=== PATIENT | male | born 1960 | race Caucasian/White ===

== ENCOUNTER 2020-05-25 22:25 | Emergency (ER) | payer OTHER ==
[~2020-05-25] VITALS: Ht 188 cm; Wt 109.8 kg
[2020-05-26] MEDS ORDERED: LIDOCAINE W/ EPINEPHRINE 2% INJ 20ML VIAL ONE (05:07)
[2020-05-26 05:55] VITALS: BP 134/78
== END 2020-05-26 05:58 | disposition home or self-care (01) ==
LOC: EDBD 22:25 → ER 22:25
DX: S01.01XA Laceration without foreign body of scalp, initial encounter (principal); S00.03XA Contusion of scalp, initial encounter; X58.XXXA Exposure to other specified factors, initial encounter; Y93.89 Activity, other specified; Y92.89 Other specified places as the place of occurrence of the external cause; Y99.8 Other external cause status
CPT/HCPCS: 12002; 70450; 72125

== ENCOUNTER → 2024-04-26 | Outpatient (CLI) | payer OTHER ==
[2024-04-26 08:28] LABS: Urine Blood Negative /uL (Negative); Urine Clarity Clear (Clear); Urine Color Yellow (Yellow); Urine Protein, UAD Negative (Negative); Urine Specific Gravity 1.024 (1.001-1.035); Urine Urobilinogen Normal (Negative); Urine pH 5.5 (5.0-9.0)
== END | disposition home or self-care (01) ==
LOC: LAB 08:18
PROVIDERS: ATTEND Internal Medicine
DX: R10.2 Pelvic and perineal pain (principal)
CPT/HCPCS: 81003; 87086

== ENCOUNTER 2025-02-20 00:36 | Inpatient (IN) | payer OTHER ==
[2025-02-20] VITALS (7 sets, daily range): BP systolic 115–151; BP diastolic 72–82; PULSE 64–78; RESP 12–22; TEMP 97.3–98.2; O2SAT 93–97
[~2025-02-20] VITALS: Ht 180.3 cm; Wt 108.2 kg
--- NOTE | 2025-02-20 00:50 | ECG ---
[facility] Test Date: 2025-02-20 Test Time: 00:40:51 Pat Name: DANYELL PERDUE Department: ed Room: Gender: M Evp And Chief Operating Officer: LIZBETH : 1960 Requested By: JONATHON BUTLER Order Number: [id number] Reading MD: Measurements Intervals [place] Rate: 102 P: 0 VA: 145 QRS: 98 QRSD: 88 T: -22 QT: 341 QTc: 445 Interpretive Statements Sinus tachycardia Atrial premature complex Right axis deviation Borderline T abnormalities, inferior leads Please click the below link to view image of tracing.
[2025-02-20 01:03] LABS: Urine Bacteria None Seen /hpf (None Seen)
[2025-02-20 01:10] LABS: Basophils # (auto) 0.1 10 ^3/uL (0-0.2); Basophils % (auto) 0.9 % (0.0-2.0); Eosinophils # (auto) 0.2 10 ^3/uL (0-0.8); Eosinophils % (auto) 2.6 % (0.0-7.0); Hematocrit 48.1 % (41.0-53.0); Hemoglobin 16.3 g/dL (13.5-17.5); Lymphocytes # (auto) 2.9 10 ^3/uL (0.4-5.4); Mean Corpuscular Hemoglobin 32.8 pg (28.0-32.0); Mean Corpuscular Volume 96.5 fL (80.0-100.0); Monocytes # (auto) 0.6 10 ^3/uL (0-1.3); Monocytes % (auto) 8.8 % (0.0-12.0); Neutrophils # (auto) 2.8 10 ^3/uL (1.6-8.6); Neutrophils % (auto) 42.7 % (37.0-80.0); Nucleated Red Blood Cells % 0.2 %; Platelet Count (auto) 189 10^3/uL (140-450); Red Blood Cells 4.98 10^6/uL (4.5-5.90); White Blood Cell 6.5 10^3/uL (4.4-10.8)
[2025-02-20 01:23] LABS: Urine Blood Negative /uL (Negative); Urine Clarity Clear (Clear); Urine Color Light-Yellow (Yellow); Urine Hyaline Cast FEW /lpf (0 - 2); Urine Mucus FEW (None Seen); Urine Protein, UAD 1+ (Negative); Urine Specific Gravity 1.014 (1.001-1.035); Urine Squamous Epithelial Cell None Seen /hpf (<5); Urine Urobilinogen Normal (Negative); Urine WBC < 1 /HPF (0-3)
[2025-02-20 01:24] LABS: Alanine Aminotransferase 29 U/L (7-40); Albumin 4.2 g/dL (3.2-4.8); Alkaline Phosphatase 58 U/L (46-116); Anion Gap 14 (5-15); Aspartate Aminotransferase 30 U/L (13-40); BUN/Creatinine Ratio 18.4 (10.0-20.0); Bilirubin, Total 0.6 mg/dL (0.2-1.0); Blood Urea Nitrogen 16 mg/dL (9-23); Calcium 8.9 mg/dL (8.7-10.4); Carbon Dioxide 21 mmol/L (20-31); Chloride 106 mmol/L (98-107); Glucose 121 mg/dL (74-106); Lipase 60 U/L (12-53); Potassium 3.5 mmol/L (3.5-5.1); Sodium 141 mmol/L (136-145); Total Protein 6.5 g/dL (5.7-8.2)
--- NOTE | 2025-02-20 01:59 | ED.PDOC ---
HPI Comments 64-year-old male with a history of BPH and high cholesterol brought in by family complaining of retrosternal chest pain that woke him from sleep after he rolled over in bed about an hour and a half ago. He describes the pain as like severe heartburn or indigestion, no particular exacerbating factors, associated with shortness of breath and dizziness. He states he initially tried to walk it off, however this made the symptoms worse, so he decided to come to the emergency room. At the time of my interview, the patient states pain has completely subsided and he is pain-free. He denies any other recent symptoms. Chief Complaint: Chest Pain Time Seen by MD: 00:45 Primary Care Provider: Carolyne Reviewed Notes: Nurses Notes Allergies: Coded Allergies: NO KNOWN ALLERGIES (Unverified , 05/25/20) Information Source: Patient Mode of Arrival: Ambulatory Past Medical History PAST MEDICAL HISTORY: High Lipids Past Medical History (Other): BPH Surgical History (Other): Inguinal hernia repair, knee surgery, rotator cuff surgery Family History Family History: Family hx of heart lew Family History (Other): Multiple family members with heart disease Social History Smoker: Non-Smoker Alcohol: Heavy Drugs: Denies Drug Use Lives In: Home All Other Systems: Reviewed and Negative (Comprehensive systems review obtained and negative except for what is stated in the HPI.) Physical Exam General Appearance: No Apparent Distress, Obese HEENT: Other (Pupils and face symmetric. Moist mucous membranes.) Neck: Full Range of Motion, Normal Inspection Respiratory: Lungs Clear, No Accessory Muscle Use, No Respiratory Distress, Normal Breath Sounds Cardiovascular: No Edema, No JVD, Tachycardia Breast Exam: Deferred Gastrointestinal: Non Tender, Soft Genitalia: Deferred Pelvic: Deferred Rectal: Deferred Extremities: Normal inspection, Normal range of motion, Non-tender, No pedal edema Neurologic: Alert (Oriented x4), Normal Affect, Normal Mood, Other (Ambulatory) Cerebellar Function: NOT DONE Reflexes: NOT DONE Skin: Dry, Normal Color, Warm Lymphatic: NOT DONE EKG EKG : Comments Sinus tach, rate 102, multiple PACs, normal intervals, right axis deviation, possible old anteroseptal infarct, nonspecific T change. Was a procedure done? Was a procedure done?: No CP Differential Dx Differential Diagnosis: Angina, AR Differential Diagnosis: CHF Differential Diagnosis: Aortic dissection, Chest Wall Pain, Esophageal reflux/spasm, Gastritis, Myocardial Infarction, Pericarditis X-Ray, Labs, Meds, VS Vital Signs Date Time Temp Pulse Resp B/P (MAP) Pulse Ox O2 Delivery O2 Flow Rate FiO2 02/20/25 03:38 87 21 96 Room Air 02/20/25 03:38 98.2 87 21 117/87 (97) 96 98.2 02/20/25 00:45 97.9 102 18 140/86 (104) 95 97.9 02/20/25 00:40 102 Lab Test 02/20/25 04:52 02/20/25 02:47 02/20/25 01:00 02/20/25 00:47 Range/Units Troponin I High Sensitivity 66 *H 35 21 </=54 ng/L Urine Color Light-yellow Yellow Urine Clarity Clear Clear Urine pH 6.0 5.0-9.0 Urine Specific [place] 1.014 1.001-1.035 Urine Protein 1+ H Negative Urine Ketones 1+ H Negative Urine Blood Negative Negative /uL Urine Nitrite Negative Negative Urine Bilirubin Negative Negative Urine Urobilinogen Normal Negative mg/dL Urine Leukocyte Esterase Negative Negative /uL Urine RBC None seen 0 - 3 /hpf Urine Microscopic WBC < 1 0-3 /HPF Urine Squamous Epithelial Cells None seen <5 /hpf Urine Bacteria None seen None Seen /hpf Urine Hyaline Casts Few 0 - 2 /lpf Urine Mucus Few None Seen Urine Glucose Normal Normal mg/dL White Blood Count 6.5 4.4-10.8 10^3/uL Red Blood Count 4.98 4.5-5.90 10^6/uL Hemoglobin 16.3 13.5-17.5 g/dL Hematocrit 48.1 41.0-53.0 % Mean Corpuscular Volume 96.5 80.0-100.0 fL Mean Corpuscular Hemoglobin 32.8 H 28.0-32.0 pg Mean Corpuscular Hemoglobin Concent 34.0 32.0-36.0 g/dL Red Cell Distribution Width 13.0 11.8-14.3 % Platelet Count 189 140-450 10^3/uL Mean Platelet Volume 7.7 6.9-10.8 fL Neutrophils (%) (Auto) 42.7 37.0-80.0 % Lymphocytes (%) (Auto) 45.0 10.0-50.0 % Monocytes (%) (Auto) 8.8 0.0-12.0 % Eosinophils (%) (Auto) 2.6 0.0-7.0 % Basophils (%) (Auto) 0.9 0.0-2.0 % Neutrophils # (Auto) 2.8 1.6-8.6 10 ^3/uL Lymphocytes # (Auto) 2.9 0.4-5.4 10 ^3/uL Monocytes # (Auto) 0.6 0-1.3 10 ^3/uL Eosinophils # (Auto) 0.2 0-0.8 10 ^3/uL Basophils # (Auto) 0.1 0-0.2 10 ^3/uL Nucleated Red Blood Cells 0.2 % Sodium Level 141 136-145 mmol/L Potassium Level 3.5 3.5-5.1 mmol/L Chloride Level 106 98-107 mmol/L Carbon Dioxide Level 21 20-31 mmol/L Anion Gap 14 5-15 Blood Urea Nitrogen 16 9-23 mg/dL Creatinine 0.87 0.700-1.30 mg/dL Glomerular Filtration Rate Calc 97 >90 mL/min BUN/Creatinine Ratio 18.4 10.0-20.0 Serum Glucose 121 H 74-106 mg/dL Calcium Level 8.9 8.7-10.4 mg/dL Total Bilirubin 0.6 0.2-1.0 mg/dL Aspartate Amino Transferase (AST) 30 13-40 U/L Alanine Aminotransferase (ALT) 29 7-40 U/L Alkaline Phosphatase 58 46-116 U/L B-Type Natriuretic Peptide 71.79 0-100 pg/mL Total Protein 6.5 5.7-8.2 g/dL Albumin 4.2 3.2-4.8 g/dL Triglycerides Level 480 H < 150 mg/dL Cholesterol Level 196 < 200 mg/dL LDL Cholesterol < 100 mg/dL HDL Cholesterol 63 H 40-59 mg/dL Lipase 60 H 12-53 U/L Thyroid Stimulating Hormone (TSH) 4.37 0.55-4.78 uIU/mL Current Medications Medications (Trade) Dose Ordered Sig/Liliana Route Start Time Stop Time Status Last Admin Aspirin 162 mg ONCE ONCE PO 02/20/25 04:30 02/20/25 04:31 DC 02/20/25 05:[address] [address] Ph: [phone] DIAGNOSTIC IMAGING Diagnostic Imaging Report : [id number] Signed PATIENT: DANYELL PERDUE ACCT: [id number] UNIT: [id number] : 1960 LOC: ER ROOM / BED: / AGE / SEX: 64 / M ADM STATUS: REG ER SERVICE ORDERING PHYSICIAN: JONATHON HILTON MD PROCEDURE(s): CXRP - CHEST PORTABLE REASON: cp ORDER NUMBER(s): [id number], ACCESSION NUMBER(s): [id number] CHEST RADIOGRAPH Indication: cp Technique: Single frontal view of the chest was obtained Comparison: None IMPRESSION: Heart appears normal in size. The lungs appear clear without focal airspace opacity, effusion, or pneumothorax ATED BY: XAVIER CHAUDHRY MD DICTATED DATE/TIME: 02/20/25220 SIGNED BY: XAVIER CHAUDHRY MD SIGNED DATE/TIME: 02/20/25220 CC: X-Ray, Labs, Meds, VS Comment 64-year-old male with a history of BPH and high cholesterol presenting with chest pain Vitals remarkable for heart rate 102 Exam remarkable for tachycardia Rhythm strip independently interpreted by me: Sinus tach, rate 102, no ectopy. Chest x-ray unremarkable CBC and CMP unremarkable, BNP and 2 troponins negative, lipase 60 Patient treated with the following in the ED: Aspirin 162 mg p.o., viscous lidocaine 10 mL p.o., 10 mL p.o., Maalox 30 mL p.o. On re-evaluation, patient remains chest pain-free. Vitals were stable. Heart score is 4, however lipase is slightly elevated. Plan is to admit the patient for ongoing serial troponins, Cardiology evaluation and possible GI evaluation Time of 1ST Reevaluation: 04:19 Reevaluation 1ST: Unchanged Patient Education/Counseling: Diagnosis, Treatment Family Education/Counseling: No Family Present Departure 1 Departure Time of Disposition: 04:19 Impression: Primary Impression: Chest pain, moderate coronary artery risk Additional Impression: Elevated lipase Disposition: ADMITTED INPATIENT Admit to: [facility] Condition: Guarded Critical Care Note Critical Care Time?: No Stability Stability form required: No Heart Score Heart Score: Heart Score Response (Comments) Value History Moderate Suspicious 1 EKG Repolarization Disturb 1 Age 45-64 1 Risk Factors 1 or 2 risk factors 1 Troponin Normal limit 0 Total 4 I personally scribed for JONATHON HILTON MD ([email or web address]) on 02/20/25 at 02:47. Electronically submitted by Jovany Palacio ([email or web address]). JONATHON HILTON MD February 20, 2025 01:59
--- NOTE | 2025-02-20 02:23 | DVH ---
CHEST RADIOGRAPH Indication: cp Technique: Single frontal view of the chest was obtained Comparison: None IMPRESSION: Heart appears normal in size. The lungs appear clear without focal airspace opacity, effusion, or pn eumothorax
[2025-02-20] MEDS ORDERED: ONDANSETRON HCL 4 MG/2 ML VIAL IV PRN (05:00)
[2025-02-20] MEDS ORDERED: MORPHINE SULFATE INJ 2 MG/ml SYRG IV PRN (05:00)
[2025-02-20] MEDS ORDERED: NITROGLYCERIN 0.4 MG SL TAB SL PRN (05:00)
[2025-02-20] MEDS: MAALOX PLUS or MAALOX 30 ML PO ONE (05:06)
[2025-02-20] MEDS: DONNATAL 5ml ORAL Elix (BELLADONNA ALK-PHENOBARB) PO ONE (05:06)
[2025-02-20] MEDS: LIDOCAINE VISCOUS 2% 15ML UD PO ONE (05:07)
[2025-02-20] MEDS: ASPirin 81 mg TAB PO ONE (05:12)
--- NOTE | 2025-02-20 05:19 | DVHHP2 ---
History of Present Illness Reason for Visit: CHEST PAIN History of Present Illness 64-YEAR-OLD MALE PRESENTS FOR EVALUATION OF CHEST PAIN. PATIENT REPORTS BEING AWAKENED BY A SHARP SUBSTERNAL NONRADIATING CHEST PAIN. HE ASSOCIATES HAVING MILD DIZZINESS AND SHORTNESS FOR BREATH. NO NAUSEA OR VOMITING. NO COUGH OR FEVER. NO OTHER ACUTE COMPLAINTS REPORTED. Past Medical History DYSLIPIDEMIA AND BPH Past Surgical History INGUINAL HERNIA REPAIR, KNEE SURGERY Family History HEART DISEASE Smoke: No ALCOHOL: heavy Drugs: None Lives: with Family Review of Systems Review of Systems REVIEW OF SYSTEMS ARE CURRENTLY NEGATIVE OTHERWISE ADDRESSED IN HPI. Allergies: Coded Allergies: NO KNOWN ALLERGIES (Unverified , 05/25/20) Medications Current Medications Medications Dose Ordered Sig/Liliana Route Start Time Stop Time Status Last Admin Dose Admin Ondansetron HCl 4 mg Q4HP PRN IV 02/20/25 05:00 Nitroglycerin 0.4 mg Q5MINP PRN SL 02/20/25 05:00 Morphine Sulfate 2 mg Q30M PRN IV 02/20/25 05:00 Tamsulosin HCl 0.4 mg QPM PO 02/20/25 18:00 Exam Vital Signs Vital Signs Date Time Temp Pulse Resp B/P (MAP) Pulse Ox O2 Delivery O2 Flow Rate FiO2 02/20/25 03:38 87 21 96 Room Air 02/20/25 03:38 98.2 117/87 (97) 98.2 Exam GEN: 64-YEAR-OLD MALE IN MILD DISTRESS SKIN: WARM, DRY, NORMAL COLOR AND TEXTURE, NO RASH. HEENT: NORMOCEPHALIC ATRAUMATIC, MUCOUS MEMBRANES MOIST AND PINK. NECK: CERVICAL AND SUPRACLAVICULAR NODES NORMAL WITHOUT ENLARGEMENT, TRACHEA IS MIDLINE, THYROID GLAND IS NORMAL WITHOUT MASSES. PULMONARY: CLEAR TO AUSCULTATION AND PERCUSSION BILATERALLY. CARDIAC: REGULAR RATE AND RHYTHM. NO MURMUR ABDOMEN: SOFT, NONTENDER, NONDISTENDED, BOWEL SOUNDS PRESENT ALL 4 QUADRANTS, NO GUARDING, NO RIGIDITY, NO ORGANOMEGALY. EXTREMITIES: NO CYANOSIS, CLUBBING, NO EDEMA NEURO: CRANIAL NERVES II THROUGH XII GROSSLY INTACT, NORMAL AFFECT AND SPEECH, NO FOCAL MOTOR DEFICITS. Labs/Xrays ORDERING PHYSICIAN: JONATHON HILTON MD PROCEDURE(s): CXRP - CHEST PORTABLE REASON: cp ORDER NUMBER(s): [id number], ACCESSION NUMBER(s): [id number] CHEST RADIOGRAPH Indication: cp Technique: Single frontal view of the chest was obtained Comparison: None IMPRESSION: Heart appears normal in size. The lungs appear clear without focal airspace opacity, effusion, or pneumothorax Labs Test 02/20/25 04:52 02/20/25 01:00 02/20/25 00:47 Range/Units Urine Color Light-yellow Yellow Urine Clarity Clear Clear Urine pH 6.0 5.0-9.0 Urine Specific [place] 1.014 1.001-1.035 Urine Protein 1+ H Negative Urine Ketones 1+ H Negative Urine Blood Negative Negative /uL Urine Nitrite Negative Negative Urine Bilirubin Negative Negative Urine Urobilinogen Normal Negative mg/dL Urine Leukocyte Esterase Negative Negative /uL Urine RBC None seen 0 - 3 /hpf Urine Microscopic WBC < 1 0-3 /HPF Urine Squamous Epithelial Cells None seen <5 /hpf Urine Bacteria None seen None Seen /hpf Urine Hyaline Casts Few 0 - 2 /lpf Urine Mucus Few None Seen Urine Glucose Normal Normal mg/dL White Blood Count 6.5 4.4-10.8 10^3/uL Red Blood Count 4.98 4.5-5.90 10^6/uL Hemoglobin 16.3 13.5-17.5 g/dL Hematocrit 48.1 41.0-53.0 % Mean Corpuscular Volume 96.5 80.0-100.0 fL Mean Corpuscular Hemoglobin 32.8 H 28.0-32.0 pg Mean Corpuscular Hemoglobin Concent 34.0 32.0-36.0 g/dL Red Cell Distribution Width 13.0 11.8-14.3 % Platelet Count 189 140-450 10^3/uL Mean Platelet Volume 7.7 6.9-10.8 fL Neutrophils (%) (Auto) 42.7 37.0-80.0 % Lymphocytes (%) (Auto) 45.0 10.0-50.0 % Monocytes (%) (Auto) 8.8 0.0-12.0 % Eosinophils (%) (Auto) 2.6 0.0-7.0 % Basophils (%) (Auto) 0.9 0.0-2.0 % Neutrophils # (Auto) 2.8 1.6-8.6 10 ^3/uL Lymphocytes # (Auto) 2.9 0.4-5.4 10 ^3/uL Monocytes # (Auto) 0.6 0-1.3 10 ^3/uL Eosinophils # (Auto) 0.2 0-0.8 10 ^3/uL Basophils # (Auto) 0.1 0-0.2 10 ^3/uL Nucleated Red Blood Cells 0.2 % Sodium Level 141 136-145 mmol/L Potassium Level 3.5 3.5-5.1 mmol/L Chloride Level 106 98-107 mmol/L Carbon Dioxide Level 21 20-31 mmol/L Anion Gap 14 5-15 Blood Urea Nitrogen 16 9-23 mg/dL Creatinine 0.87 0.700-1.30 mg/dL Glomerular Filtration Rate Calc 97 >90 mL/min BUN/Creatinine Ratio 18.4 10.0-20.0 Serum Glucose 121 H 74-106 mg/dL Calcium Level 8.9 8.7-10.4 mg/dL Total Bilirubin 0.6 0.2-1.0 mg/dL Aspartate Amino Transferase (AST) 30 13-40 U/L Alanine Aminotransferase (ALT) 29 7-40 U/L Alkaline Phosphatase 58 46-116 U/L B-Type Natriuretic Peptide 71.79 0-100 pg/mL Total Protein 6.5 5.7-8.2 g/dL Albumin 4.2 3.2-4.8 g/dL Lipase 60 H 12-53 U/L Assessment/Plan Assessment/Plan ASSESSMENT CHEST PAIN RULE OUT ACS DYSLIPIDEMIA PLAN ADMIT THE PATIENT TO TELEMETRY TO THE HOSPITALIST ACS PROTOCOL RESUME HOME MEDICATIONS CONTINUE TREATMENT PER ORDERS. Plan discussed with: Patient My Orders Orders - SHAYNE LAGUNA Procedure Category Date Status Time Thyroid Stimulating LAB 02/20/25 In Process Hormone 04:55 Basic Metabolic Panel LAB 02/21/25 Verified 04:00 Lipid Panel LAB 02/20/25 In Process 04:55 Admit ADMIT 02/20/25 Transmitted 04:55 Ondansetron Hcl PHA 02/20/25 In Process (Zofran) 05:00 Cardiac DIET 02/20/25 Transmitted Diet-2gna,Lofat,Lochol Breakfast Echo 2d Mode Cardiac US 02/20/25 Logged DOP 04:55 Condition: Fair LIZ 02/20/25 In Process 04:55 Bedrest With Bathroom LIZ 02/20/25 In Process Privileg 04:55 Nitroglycerin PHA 02/20/25 In Process Sublingual (Ntrostat 05:00 Morphine Sulfate PHA 02/20/25 In Process Injection 05:00 Stat Ekg For Chest LIZ 02/20/25 In Process Pain 04:55 Notify Of Changes LIZ 02/20/25 In Process From Base 04:55 Web Worker For LIZ 02/20/25 In Process 24 Hours 04:55 Emergency Dysrhythmia LIZ 02/20/25 In Process Protocol 04:55 Rhythm Strips Once LIZ 02/20/25 In Process Every Shift 04:55 Oxygen By Nasal RT 02/20/25 Transmitted Cannula 04:55 Tamsulosin PHA 02/20/25 In Process Hydrochloride (Flomax) 18:00 Date of Service: February 20, 2025 Billing Provider: SHAYNE LAGUNA Common Visit Codes: [id number] INP/OBS CARE (HIGH) SHAYNE LAGUNA February 20, 2025 05:19
[2025-02-20 05:31] LABS: Cholesterol 196 mg/dL (< 200)
[2025-02-20 05:35] LABS: HDL Cholesterol 63 mg/dL (40-59); Triglycerides 480 mg/dL (< 150)
[2025-02-20] MEDS ORDERED: TADA5TAB11 PO (07:00)
[2025-02-20] MEDS ORDERED: TAMS1CAP25 PO (10:57)
[2025-02-20] MEDS: PANTOPRAZOLE 40 MG TAB PO ONE (13:15)
[2025-02-20] MEDS: ENOXAPARIN SOD 30 MG/0.3 ML SYRINGE SC ONE (13:15)
[2025-02-20] MEDS: ENOXAPARIN SOD 40 MG/0.4 ML SYRINGE SC ONE (13:30)
--- NOTE | 2025-02-20 13:33 | DVHPNRES ---
Progress Note Date Seen: February 20, 2025 Resident Creating Document: SAUL BENNETT RESIDENT Medical Necessity Reason Pt with a Central, PICC or Fol: No Subjective Review of Systems Patient seen and examined at bedside Patient was complaining of pressure-like chest pain Patient also had complaining of sharp shooting substernal chest pain Not related to exertion No any other new complaint No active chest pain Cardiology consultation has been done Objective vital signs Vital Sign Date Time Temp Pulse Resp B/P (MAP) Pulse Ox O2 Delivery O2 Flow Rate FiO2 02/20/25 09:00 97.7 64 12 129/80 (96) 95 97.7 02/20/25 05:58 Room Air* 0 21 medications Current Medications Medications Dose Ordered Sig/Liliana Route Start Time Stop Time Status Last Admin Dose Admin Ondansetron HCl 4 mg Q4HP PRN IV 02/20/25 05:00 Nitroglycerin 0.4 mg Q5MINP PRN SL 02/20/25 05:00 Morphine Sulfate 2 mg Q30M PRN IV 02/20/25 05:00 Tamsulosin HCl 0.4 mg QPM PO 02/20/25 18:00 Pantoprazole Sodium 40 mg DAILY@0600 PO 02/21/25 06:00 UNV Enoxaparin Sodium 30 mg DAILY SC 02/21/25 10:00 UNV Aspirin 81 mg DAILY PO 02/21/25 10:00 UNV Examination General Appearance: Cooperative. Well developed. Well nourished. NAD Head Exam: Normal inspection Neck Exam: Normal inspection. Non-tender. Normal alignment Pulmonary/Respiratory: Chest non-tender. Clear bilateral breath sounds Cardiovascular/Chest: Regular rate and rhythm. No murmurs. No JVD. Peripheral Pulses: 2+ Radial (R). 2+ Radial (L). 2+ Pedal (R). 2+ Pedal (L) Abdominal Exam: Normal bowel sounds. Soft. Nontender. No hepatospenomegaly. No masses Ankle Exam: Negative ankle edema Lower extremities: Negative lower extremity edema Neuro/Mental Status: A&O x4. Coherent Thoughts/Psych: Normal thought pattern. Appropriate mood and affect. Good judgement and insight Appearance: In no acute distress Skin Exam: Normal inspection. Normal color. Warm. Dry laboratory and microbiology Laboratory Tests 02/20/25 00:47 Test 02/20/25 00:47 Range/Units Serum Glucose 121 H 74-106 mg/dL Problem List/Assessment/Plan Problem List/Assessment/Plan Chest pain cardiac versus noncardiac Rule out ACS NSTEMI type 2 GERD Hypertriglyceridemia Hyperglycemia pending HGB A1c Mild elevated lipase likely related to hyperglycemia Alcohol abuse obesity BMI 34.3 kg/m2 Plan/recommendation -continue aspirin 81 mg p.o. daily, atorvastatin 40 mg p.o. daily. Pending cardiology consultation -echocardiogram pending -pending LDL level -hypertriglyceridemia: Triglyceride liver 480 -elevated troponin cardiology consultation done for possible stress test -hyperglycemia: Pending even see -PUD prophylaxis with Protonix -DVT prophylaxis with Lovenox Plan discussed with Dr. Best Plan discussed with: Patient, Other (RN) My Orders My Orders Orders - SAUL BENNETT Procedure Category Date Status Time Pantoprazole Tablet PHA 02/20/25 Logged (Protonix Tablet) 13:15 Pantoprazole Tablet PHA 02/21/25 Logged (Protonix Tablet) 06:00 Enoxaparin Sodium PHA 02/20/25 Logged (Lovenox) 13:15 Enoxaparin Sodium PHA 02/21/25 Logged (Lovenox) 10:00 Aspirin Tablet PHA 02/21/25 Logged 10:00 Hemoglobin A1c LAB 02/20/25 In Process 13:12 Lipid Panel LAB 02/20/25 In Process 13:14 Atorvastatin (Lipitor) PHA 02/20/25 Verified 22:00 Date of Service: February 20, 2025 Billing Provider: MYCHAL BEST MD Common Visit Codes: [id number] INP/OBS CARE(HIGH) SAUL BENNETT February 20, 2025 13:33 MYCHAL BEST MD February 20, 2025 15:19
[2025-02-20 13:35] LABS: LDL Cholesterol 90 mg/dL (< 100); Triglycerides 209 mg/dL (< 150)
[2025-02-20 13:37] LABS: Cholesterol 191 mg/dL (< 200); HDL Cholesterol 69 mg/dL (40-59)
--- NOTE | 2025-02-20 15:09 | DVHINCON2 ---
Date Seen: February 20, 2025 Referring Physician MD Olivier Reason for Consultation Chest pain History of Present Illness This is a 64-year-old male with past medical history of BPH and dyslipidemia came to the hospital due to chest pain. Per patient, last night he suddenly developed chest pain while rolling on the bed. Pain is localized at substernal area, nonradiating, pressure-like, 8/10 in intensity, with no clear exacerbating or relieving factor. He took 2 tablets of aspirin at home but did not relieved the pain, pain lasted for 2 hours and upon arrival to the hospital subsided by itself. He also reports shortness of breaths. He denies fever, cough, potassium, sick contacts or any recent chest trauma. PMHx: BPH and dyslipidemia PSHx: Not significant Family history: Noncontributing Social history: Ex marijuana user, denies any other drug use Home medication: Sildenafil, tamsulosin, and niacin Allergic history: No known allergy Patient seen and examined at the bedside. Patient currently has no chest pain. Past Medical History Per H&P Past Surgical History Per H&P Family History: Diabetes mellitus G8 FATHER FH: heart disease G8 MOTHER Family History Per H&P Social History Per H&P Allergies: Coded Allergies: NO KNOWN ALLERGIES (Unverified , 05/25/20) Home Meds Reported Medications Tamsulosin HCl (Tamsulosin Hydrochloride) 0.4 Mg Cap, 0.4 MG PO, CAP 02/20/25 Tadalafil (Cialis) 5 Mg Tab, 5 MG PO, TAB 02/20/25 Current Medications Current Medications Medications (Trade) Dose Ordered Sig/Liliana Route PRN Reason Start Time Stop Time Status Last Admin Ondansetron HCl (Zofran) 4 mg Q4HP PRN IV NAUSEA / VOMITING 02/20/25 05:00 Nitroglycerin (Ntrostat Sublingual) 0.4 mg Q5MINP PRN SL FOR CHEST PAIN 02/20/25 05:00 Morphine Sulfate 2 mg Q30M PRN IV FOR CHEST PAIN 02/20/25 05:00 Tamsulosin HCl (Flomax) 0.4 mg QPM PO 02/20/25 18:00 Pantoprazole Sodium (Protonix Tablet) 40 mg DAILY@0600 PO 02/21/25 06:00 Enoxaparin Sodium (Lovenox) 30 mg DAILY SC 02/21/25 10:00 UNV Aspirin 81 mg DAILY PO 02/21/25 10:00 Atorvastatin Calcium (Lipitor) 40 mg HS PO 02/20/25 22:00 Enoxaparin Sodium (Lovenox) 40 mg DAILY SC 02/21/25 10:00 Review of Systems Per H&P Vital Signs Vital Signs Date Time Temp Pulse Resp B/P (MAP) Pulse Ox O2 Delivery O2 Flow Rate FiO2 02/20/25 13:30 97.8 66 22 149/76 (100) 93 97.8 02/20/25 05:58 Room Air* 0 21 Physical Exam General Appearance: Alert, Oriented X3, Cooperative, No acute distress HEENT: Atraumatic, PERRLA, EOMI, Mucous membrane moist/pink Respiratory: Clear to auscultation, Normal air movement Cardiovascular: Regular rate, Normal S1, Normal S2, No murmurs, no chest wall tenderness Abdominal: Normal bowel sounds, Soft, No tenderness, No hepatospenomegaly, No masses Extremities: No clubbing, No cyanosis, No edema, Normal pulses, No tenderness/swelling Skin: No rashes, No breakdown, No significant lesion Neuro: Normal gait, Normal speech, Strength at 5/5 X4 ext, Normal tone, Sensation intact, Cranial nerves 3-12 NL, Reflexes 2+ Psych/Mental Status: Mental status NL, Mood NL Labs/Diagnostic Data Labs Test 02/20/25 04:52 02/20/25 01:00 02/20/25 00:47 Range/Units Troponin I High Sensitivity 66 *H </=54 ng/L Triglycerides Level 209 H < 150 mg/dL Cholesterol Level 191 < 200 mg/dL LDL Cholesterol 90 < 100 mg/dL HDL Cholesterol 69 H 40-59 mg/dL Urine Color Light-yellow Yellow Urine Clarity Clear Clear Urine pH 6.0 5.0-9.0 Urine Specific [place] 1.014 1.001-1.035 Urine Protein 1+ H Negative Urine Ketones 1+ H Negative Urine Blood Negative Negative /uL Urine Nitrite Negative Negative Urine Bilirubin Negative Negative Urine Urobilinogen Normal Negative mg/dL Urine Leukocyte Esterase Negative Negative /uL Urine RBC None seen 0 - 3 /hpf Urine Microscopic WBC < 1 0-3 /HPF Urine Squamous Epithelial Cells None seen <5 /hpf Urine Bacteria None seen None Seen /hpf Urine Hyaline Casts Few 0 - 2 /lpf Urine Mucus Few None Seen Urine Glucose Normal Normal mg/dL White Blood Count 6.5 4.4-10.8 10^3/uL Red Blood Count 4.98 4.5-5.90 10^6/uL Hemoglobin 16.3 13.5-17.5 g/dL Hematocrit 48.1 41.0-53.0 % Mean Corpuscular Volume 96.5 80.0-100.0 fL Mean Corpuscular Hemoglobin 32.8 H 28.0-32.0 pg Mean Corpuscular Hemoglobin Concent 34.0 32.0-36.0 g/dL Red Cell Distribution Width 13.0 11.8-14.3 % Platelet Count 189 140-450 10^3/uL Mean Platelet Volume 7.7 6.9-10.8 fL Neutrophils (%) (Auto) 42.7 37.0-80.0 % Lymphocytes (%) (Auto) 45.0 10.0-50.0 % Monocytes (%) (Auto) 8.8 0.0-12.0 % Eosinophils (%) (Auto) 2.6 0.0-7.0 % Basophils (%) (Auto) 0.9 0.0-2.0 % Neutrophils # (Auto) 2.8 1.6-8.6 10 ^3/uL Lymphocytes # (Auto) 2.9 0.4-5.4 10 ^3/uL Monocytes # (Auto) 0.6 0-1.3 10 ^3/uL Eosinophils # (Auto) 0.2 0-0.8 10 ^3/uL Basophils # (Auto) 0.1 0-0.2 10 ^3/uL Nucleated Red Blood Cells 0.2 % Sodium Level 141 136-145 mmol/L Potassium Level 3.5 3.5-5.1 mmol/L Chloride Level 106 98-107 mmol/L Carbon Dioxide Level 21 20-31 mmol/L Anion Gap 14 5-15 Blood Urea Nitrogen 16 9-23 mg/dL Creatinine 0.87 0.700-1.30 mg/dL Glomerular Filtration Rate Calc 97 >90 mL/min BUN/Creatinine Ratio 18.4 10.0-20.0 Serum Glucose 121 H 74-106 mg/dL Hemoglobin A1c 4.8 <5.7 % A1C Calcium Level 8.9 8.7-10.4 mg/dL Total Bilirubin 0.6 0.2-1.0 mg/dL Aspartate Amino Transferase (AST) 30 13-40 U/L Alanine Aminotransferase (ALT) 29 7-40 U/L Alkaline Phosphatase 58 46-116 U/L B-Type Natriuretic Peptide 71.79 0-100 pg/mL Total Protein 6.5 5.7-8.2 g/dL Albumin 4.2 3.2-4.8 g/dL Lipase 60 H 12-53 U/L Thyroid Stimulating Hormone (TSH) 4.37 0.55-4.78 uIU/mL Assessment Chest pain, possibly cardiac NSTEMI likely type 1 Dyslipidemia BPH Obesity * EKGs shows normal sinus rhythm with right axis deviation, no significant ST or T-wave changes * Trop I is mildly raised, BNP is within normal med Plan/Recommendation (Case discussed with Dr. Patton) * Continue aspirin, clopidogrel and atorvastatin * Metoprolol 12.5 mg b.i.d. * Check echocardiogram * Cardiolite stress test tomorrow * We follow up with the patient Thank you for allowing us to participate in this patient's care. Please call if you have any questions or concerns. Plan discussed with: Patient, Other (RN) NYHA Physical activity limitations: NA Date of Service: February 20, 2025 Billing Provider: KIRSTIN PATTON Sr., MD Cardiology Common Codes: [id number] INP/OBS CARE (High) KIKI REYES RESDIENT February 20, 2025 15:09
[2025-02-20] MEDS: CLOPIDOGREL BISULFATE 75 MG TAB PO ONE (15:15)
[2025-02-20] MEDS: LOSARTAN POTASSIUM 25 MG TAB PO ONE (15:15)
[2025-02-20] MEDS: METOPROLOL TARTRATE 25 MG TAB PO ONE (15:24)
[2025-02-20] MEDS: TAMSULOSIN HYDROCHLORIDE 0.4 MG CAP PO SCH (18:00)
[2025-02-20] MEDS: ATORVASTATIN 20 MG TAB PO SCH (21:59)
[2025-02-20] MEDS: METOPROLOL TARTRATE 25 MG TAB PO SCH (22:00)
[2025-02-21 01:00] VITALS: BP 132/86; PULSE 77; RESP 17; TEMP 97.8; O2SAT 93
[2025-02-21 05:00] VITALS: BP 127/74; PULSE 73; RESP 17; TEMP 97.9; O2SAT 93
[2025-02-21] MEDS: PANTOPRAZOLE 40 MG TAB PO SCH (05:32)
[2025-02-21 06:44] LABS: Anion Gap 10 (5-15); Carbon Dioxide 27 mmol/L (20-31); Potassium 3.8 mmol/L (3.5-5.1); Sodium 144 mmol/L (136-145)
[2025-02-21 06:45] LABS: Calcium 8.8 mg/dL (8.7-10.4)
[2025-02-21 06:50] LABS: BUN/Creatinine Ratio 14.3 (10.0-20.0); Blood Urea Nitrogen 11 mg/dL (9-23)
[2025-02-21 06:51] LABS: Chloride 107 mmol/L (98-107); Glucose 111 mg/dL (74-106)
[2025-02-21 08:00] VITALS: PULSE 63; PULSE 67; RESP 18; O2SAT 97
[2025-02-21] MEDS: REGADENOSON 0.4 MG/5 ML SYRG IV ONE ×2 (08:49→08:50)
[2025-02-21 09:00] VITALS: BP 141/74; PULSE 64; RESP 18; TEMP 97.8; O2SAT 96
[2025-02-21] MEDS ORDERED: ENOXAPARIN SOD 30 MG/0.3 ML SYRINGE SC SCH (10:00)
[2025-02-21] MEDS ORDERED: LOSARTAN POTASSIUM 25 MG TAB PO SCH (10:00)
[2025-02-21] MEDS: ENOXAPARIN SOD 40 MG/0.4 ML SYRINGE SC SCH (10:00)
[2025-02-21] MEDS: ASPirin 81 mg TAB PO SCH (10:14)
[2025-02-21] MEDS: CLOPIDOGREL BISULFATE 75 MG TAB PO SCH (10:15)
--- NOTE | 2025-02-21 10:31 | DVHPN2 ---
Progress Note Date Seen: February 21, 2025 Medical Necessity Reason Pt with a Central, PICC or Fol: No Subjective Patient reports: No new complaints Review of Systems: HEENT:Normal, CVS:Normal, RESPIRATORY:Normal, GI:Normal, :Normal, MSK:Normal, NEURO:Normal Objective vital signs Vital Sign Date Time Temp Pulse Resp B/P (MAP) Pulse Ox O2 Delivery O2 Flow Rate FiO2 02/21/25 09:00 97.8 64 18 141/74 (96) 96 97.8 02/20/25 20:00 Room Air* 0 21 Total Intake and Output 02/20/25 02/20/25 02/21/25 15:00 23:00 07:00 Intake Total 800 ml Balance 800 ml medications Current Medications Medications Dose Ordered Sig/Liliana Route Start Time Stop Time Status Last Admin Dose Admin Ondansetron HCl 4 mg Q4HP PRN IV 02/20/25 05:00 Nitroglycerin 0.4 mg Q5MINP PRN SL 02/20/25 05:00 Morphine Sulfate 2 mg Q30M PRN IV 02/20/25 05:00 Tamsulosin HCl 0.4 mg QPM PO 02/20/25 18:00 02/20/25 18:00 0.4 MG Pantoprazole Sodium 40 mg DAILY@0600 PO 02/21/25 06:00 Enoxaparin Sodium 30 mg DAILY SC 02/21/25 10:00 UNV Aspirin 81 mg DAILY PO 02/21/25 10:00 02/21/25 10:14 81 MG Atorvastatin Calcium 40 mg HS PO 02/20/25 22:00 02/20/25 21:59 40 MG Clopidogrel Bisulfate 75 mg DAILY PO 02/21/25 10:00 02/21/25 10:15 75 MG Examination: GENERAL:Normal, HEENT:Normal, NECK:Normal, LUNGS:Normal, CVS:Normal, ABDOMEN:Normal, MSK:Normal, SKIN:Normal, NEURO:Normal, :Normal laboratory and microbiology Laboratory Tests 02/21/25 05:35 02/20/25 00:47 Test 02/21/25 05:35 Range/Units Serum Glucose 111 H 74-106 mg/dL Problem List/Assessment/Plan Problem List/Assessment/Plan #1 chest pain ?cad/nstemi: stress test #2 obesity #3 bph; flomax advance care planning- full code- time spent 18 mins Plan discussed with: Patient Date of Service: February 21, 2025 Billing Provider: SHAYNE DEVINE MD Common Visit Codes: [id number] INP/OBS CARE(HIGH) Secondary Visit Codes: [id number] CARE PLAN 30 MINUTES SHAYNE DEVINE MD February 21, 2025 10:31
--- NOTE | 2025-02-21 12:05 | DVHSR ---
APPROVED REPORT Exam: Nuclear Stress Test BMI: 0 Stress Test Details HR Max Heart Rate (APMHR): 157.275902 bpm Target HR (85% APMHR): 133.195427 bpm BP ECG Stress ECG Conclusion lvef 49% infeiror wall fixed defect basal lateral wall mild defect noted, fixed NM EXAM: Myocardial Perfusion REST/STRESS Imaging Protocol: Rest Tc-99m/Stress Tc-99m 1 day Resting Data Rest SPECT myocardial perfusion imaging was performed in supine position 60 minutes following the int ravenous injection of 11.0 mCi of Tc-99m Sestamibi. Time of rest injection: 07:45 Date: 02/21/2025 Time of rest imagin:45 Date: 02/21/2025 Administration Route: IV Administration Site: Left Arm Pharmacologic Stress Pharmacologic stress test was performed by injecting Regadenoson 0.4 mg IV push followed by the intra venous injection of 31.0 mCi of Tc-99m Sestamibi. Time of stress injection: 08:50 Date: 02/21/2025 Time of stress imagin:50 Date: 02/21/2025 Administration Route: IV Administration Site: Left Arm Gated Stress SPECT was performed 60 minutes after stress injection. The images were gated to evaluate regional wall motion and calculate left ventricular ejection fracti on. Stress only was performed in the Supine position. Nuclear Conclusion Nuclear Findings: negative for ischemia lvef 49% infeiror wall fixed defect basal lateral wall mild defect noted, fixed
[2025-02-21 12:50] VITALS: BP 133/70; PULSE 67; RESP 18; TEMP 98; O2SAT 97
--- NOTE | 2025-02-21 13:33 | DVHSR ---
APPROVED REPORT EXAM: Two-dimensional and M-mode echocardiogram with Doppler and color Doppler. Blood Pressure: 115/74 mmHg INDICATION Chest Pain RISK FACTORS Height: 5'11", Weight: 245 DIMENSIONS LVDd5.1 (3.8-5.7cm)LA (2D)4.0 (1.9-4.0cm)Aortic Root3.8 (2.0-3.7cm) LVDs3.4 (2.5-4.0cm)LA (MM) (1.9-4.0cm)Aortic Cusp Exc2.1 (1.5-2.0cm) EF (%) 60.0 (55-70%)Rt. Atrium4.1 (1.9-4.0cm)Asc. Aorta cm IVSd1.2 (0.7-1.1cm)RV (D)4.1 (1.8-2.4cm) PWd1.2 (0.7-1.1cm) Mitral Valve MitralMitral Stenosis E wave0.83m/sMV Mean GR.mmHg A wave0.72m/sMV Peak GR.mmHg E/A ratio1.22D MVAcm2 DECEL [id number] 1/2 Timems Aortic Valve Aortic ValveAortic Stenosis V10.96m/Dejuan Mean GR.5mmHg V21.56m/Dejuan Peak GR.10mmHg LVOT Diameter2.4 (1.8-2.4cm)Doppler AVA2.78cm2 Pulmonic Valve V21.13m/s Conclusion Good study. Sinus rhythm. Concentric LVH with biatrial enlargement. Mild aortic root enlargement. Left ventricular function is preserved at 60% with normal RV function There is mild tricuspid regurgitation. No pericardial effusion masses or
--- NOTE | 2025-02-21 14:25 | DVHPNRES ---
Progress Note Date Seen: February 21, 2025 Resident Creating Document: KIKI REYES RESDIENT Medical Necessity Reason Pt with a Central, PICC or Fol: No Subjective Review of Systems Examined at the bedside. Patient is feeling better since admission and does not have a complaint including chest pain and shortness of breaths. Patient reports: No new complaints, Feels better Changes from previous H/P or p: Changes Objective vital signs Vital Sign Date Time Temp Pulse Resp B/P (MAP) Pulse Ox O2 Delivery O2 Flow Rate FiO2 02/21/25 12:50 98.0 67 18 133/70 (91) 97 98.0 02/20/25 20:00 Room Air* 0 21 Total Intake and Output 02/20/25 02/20/25 02/21/25 15:00 23:00 07:00 Intake Total 800 ml Balance 800 ml medications Current Medications Medications Dose Ordered Sig/Liliana Route Start Time Stop Time Status Last Admin Dose Admin Ondansetron HCl 4 mg Q4HP PRN IV 02/20/25 05:00 Nitroglycerin 0.4 mg Q5MINP PRN SL 02/20/25 05:00 Morphine Sulfate 2 mg Q30M PRN IV 02/20/25 05:00 Pantoprazole Sodium 40 mg DAILY@0600 PO 02/21/25 06:00 Enoxaparin Sodium 30 mg DAILY SC 02/21/25 10:00 UNV Aspirin 81 mg DAILY PO 02/21/25 10:00 02/21/25 10:14 81 MG Atorvastatin Calcium 40 mg HS PO 02/20/25 22:00 02/20/25 21:59 40 MG Clopidogrel Bisulfate 75 mg DAILY PO 02/21/25 10:00 02/21/25 10:15 75 MG Tamsulosin HCl 0.4 mg QPM PO 02/21/25 18:00 Examination General Appearance: Alert, Oriented X3, Cooperative, No acute distress HEENT: Atraumatic, PERRLA, EOMI, Mucous membrane moist/pink Respiratory: Clear to auscultation, Normal air movement Cardiovascular: Regular rate, Normal S1, Normal S2, No murmurs, no chest wall tenderness Abdominal: Normal bowel sounds, Soft, No tenderness, No hepatospenomegaly, No masses Extremities: No clubbing, No cyanosis, No edema, Normal pulses, No tenderness/swelling Skin: No rashes, No breakdown, No significant lesion Neuro: Normal gait, Normal speech, Strength at 5/5 X4 ext, Normal tone, Sensation intact, Cranial nerves 3-12 NL, Reflexes 2+ Psych/Mental Status: Mental status NL, Mood NL laboratory and microbiology Laboratory Tests 02/21/25 05:35 02/20/25 00:47 Test 02/21/25 05:35 Range/Units Serum Glucose 111 H 74-106 mg/dL Labs and/or images reviewed: Labs reviewed by me, Image(s) reviewed by me Problem List/Assessment/Plan Problem List/Assessment/Plan Chest pain, noncardiac, likely due to costochondritis/musculoskeletal/stress induced NSTEMI likely type 2, due to above Dyslipidemia BPH Obesity * EKGs shows normal sinus rhythm with right axis deviation, no significant ST or T-wave changes * Trop I is mildly raised, normalized * BNP is within normal limits * Echo shows, concentric LVH with biatrial enlargement. Mild aortic root enlargement. Left ventricular function is preserved at 60% * Cardiolite stress negative for ischemia, inferior wall fixed defect with fixed basal lateral wall mild defect noted Plan/Recommendation (Case discussed with Dr. Patton) * We sign off the patient, no further cardiology workup needed at the moment * Discharge plan: continue atorvastatin Thank you for allowing us to participate in this patient's care. Please call if you have any questions or concerns. Plan discussed with: Patient, Other (RN) My Orders My Orders Orders - KIKI REYES RESDIENT Procedure Category Date Status Time Clopidogrel Bisulfate PHA 02/21/25 In Process (Plavix) 10:00 Cardiolite Multiple NM 02/21/25 Resulted 07:12 Cardiac DIET 02/21/25 Transmitted Diet-2gna,Lofat,Lochol Lunch Visit Coding Cardiology RES Date of Service: February 21, 2025 Billing Provider: KIRSTIN PATTON Sr., MD Cardiology Common Codes: [id number] INP/OBS CARE (High) KIKI REYES RESDIENT February 21, 2025 14:25
--- NOTE | 2025-02-21 14:40 | ECG ---
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
--- NOTE | 2025-02-21 16:46 | DVHDS2 ---
Discharge Summary Date of Admission February 20, 2025 at 04:55 Date of Discharge: February 21, 2025 Labs/Diagnostic Data: Laboratory Results Test 02/21/25 05:35 02/20/25 19:04 02/20/25 14:50 02/20/25 04:52 Sodium Level 144 mmol/L (136-145) Potassium Level 3.8 mmol/L (3.5-5.1) Chloride Level 107 mmol/L (98-107) Carbon Dioxide Level 27 mmol/L (20-31) Anion Gap 10 (5-15) Blood Urea Nitrogen 11 mg/dL (9-23) Creatinine 0.77 mg/dL (0.700-1.30) Glomerular Filtration Rate Calc 101 mL/min (>90) BUN/Creatinine Ratio 14.3 (10.0-20.0) Serum Glucose 111 mg/dL (74-106) Calcium Level 8.8 mg/dL (8.7-10.4) Troponin I High Sensitivity 34 ng/L (</=54) Magnesium Level 1.8 mg/dL (1.6-2.6) Triglycerides Level 209 mg/dL (< 150) Cholesterol Level 191 mg/dL (< 200) LDL Cholesterol 90 mg/dL (< 100) HDL Cholesterol 69 mg/dL (40-59) Test 02/20/25 01:00 02/20/25 00:47 Urine Color Light-yellow (Yellow) Urine Clarity Clear (Clear) Urine pH 6.0 (5.0-9.0) Urine Specific [place] 1.014 (1.001-1.035) Urine Protein 1+ (Negative) Urine Ketones 1+ (Negative) Urine Blood Negative /uL (Negative) Urine Nitrite Negative (Negative) Urine Bilirubin Negative (Negative) Urine Urobilinogen Normal mg/dL (Negative) Urine Leukocyte Esterase Negative /uL (Negative) Urine RBC None seen /hpf (0 - 3) Urine Microscopic WBC < 1 /HPF (0-3) Urine Squamous Epithelial Cells None seen /hpf (<5) Urine Bacteria None seen /hpf (None Seen) Urine Hyaline Casts Few /lpf (0 - 2) Urine Mucus Few (None Seen) Urine Glucose Normal mg/dL (Normal) White Blood Count 6.5 10^3/uL (4.4-10.8) Red Blood Count 4.98 10^6/uL (4.5-5.90) Hemoglobin 16.3 g/dL (13.5-17.5) Hematocrit 48.1 % (41.0-53.0) Mean Corpuscular Volume 96.5 fL (80.0-100.0) Mean Corpuscular Hemoglobin 32.8 pg (28.0-32.0) Mean Corpuscular Hemoglobin Concent 34.0 g/dL (32.0-36.0) Red Cell Distribution Width 13.0 % (11.8-14.3) Platelet Count 189 10^3/uL (140-450) Mean Platelet Volume 7.7 fL (6.9-10.8) Neutrophils (%) (Auto) 42.7 % (37.0-80.0) Lymphocytes (%) (Auto) 45.0 % (10.0-50.0) Monocytes (%) (Auto) 8.8 % (0.0-12.0) Eosinophils (%) (Auto) 2.6 % (0.0-7.0) Basophils (%) (Auto) 0.9 % (0.0-2.0) Neutrophils # (Auto) 2.8 10 ^3/uL (1.6-8.6) Lymphocytes # (Auto) 2.9 10 ^3/uL (0.4-5.4) Monocytes # (Auto) 0.6 10 ^3/uL (0-1.3) Eosinophils # (Auto) 0.2 10 ^3/uL (0-0.8) Basophils # (Auto) 0.1 10 ^3/uL (0-0.2) Nucleated Red Blood Cells 0.2 % Hemoglobin A1c 4.8 % A1C (<5.7) Total Bilirubin 0.6 mg/dL (0.2-1.0) Aspartate Amino Transferase (AST) 30 U/L (13-40) Alanine Aminotransferase (ALT) 29 U/L (7-40) Alkaline Phosphatase 58 U/L (46-116) B-Type Natriuretic Peptide 71.79 pg/mL (0-100) Total Protein 6.5 g/dL (5.7-8.2) Albumin 4.2 g/dL (3.2-4.8) Lipase 60 U/L (12-53) Thyroid Stimulating Hormone (TSH) 4.37 uIU/mL (0.55-4.78) Other Laboratory Tests 02/21/25 05:35 02/20/25 00:47 Brief Hx & Hospital Course: SEE DICTATED NOTE Condition at Discharge: Fair Final Diagnosis/Problems List CHEST PAIN Discharge Disposition: Home Discharge Instruct/Medications Diet: Cardiac 2g Na,low cholest Activity: No Restrictions, As Tolerated Follow Up/Referral: MARYANA BRAVO PCP IN 1 WK Medications: RESUME HOME MEDS SCRIPT TO PHARMACY Discharge Statement: "Patient was advised to return to the ER or call 911 if any headaches, dizziness, shortness of breath, chest pain, abdominal pain, bleeding, fevers, or worsening of medical condition. Patient was counseled about treatment plan, medications, possible side effects, patientverbalized understanding. All questions were answered to the best of my ability. This discharge took greater then 30 minutes in planning, reviewing documentation, counseling the patient, and discussing with other team members." ASSESSMENT ASSESSMENT Assessment CHEST PAIN Date of Service: February 21, 2025 Billing Provider: SHAYNE DEVINE MD Common Visit Codes: 63151-OSV/OBS DISCH DAY >30min SHAYNE DEVINE MD February 21, 2025 16:46
[2025-02-21] MEDS ORDERED: PANT40TA2 PO (16:52)
[2025-02-21 17:00] VITALS: BP 120/76; PULSE 80; RESP 20; TEMP 98; O2SAT 95
--- NOTE | 2025-02-21 17:36 | DVHDS ---
DATE OF DISCHARGE: 02/21/2025 HISTORY OF PRESENT ILLNESS: The patient is a 64-year-old gentleman who was admitted with complaints of chest pain and has a history of BPH and hyperlipidemia. HOSPITAL COURSE: The patient had troponin levels that were essentially negative except for one that was 66. The patient was seen in Cardiology consult by Dr. Patton. Echocardiogram done showed ejection fraction of 60% with concentric LVH. The patient underwent a Cardiolite stress test that was read as being negative for ischemia with inferior wall fixed defect. The patient will now be discharged home to monitor his blood pressure as well as to take Protonix 40 mg daily. He will follow up with his primary in the next 1-2 weeks. FINAL DIAGNOSES: Therefore; * Chest pain questionably secondary to GERD. Stress test was negative. * Questionable hypertension. The patient to monitor blood pressure at home. * Obesity. * BPH. Time spent in discharge planning and review of plan with the patient and nursing was 38 minutes. I also gave the patient a copy of the echo report as well as the stress test report. MD DAO Glover/LAINEY TID: [id number] RECEIPT: [id number]
[2025-02-21] MEDS ORDERED: TAMSULOSIN HYDROCHLORIDE 0.4 MG CAP PO SCH (18:00)
--- NOTE | 2025-02-22 07:56 | ECG ---
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
== END 2025-02-21 18:02 | disposition home or self-care (01) | DRG 392 ==
LOC: ER 00:36 → OVERFLOW 04:55 → TELE-CENTR 11:10
PROVIDERS: ADMIT Internal Medicine; ATTEND Internal Medicine
DX: K21.9 Gastro-esophageal reflux disease without esophagitis (principal); E78.5 Hyperlipidemia, unspecified; N40.0 Benign prostatic hyperplasia without lower urinary tract symptoms; E66.9 Obesity, unspecified; Z79.899 Other long term (current) drug therapy; Z83.3 Family history of diabetes mellitus; Z68.34 Body mass index [BMI] 34.0-34.9, adult
CPT/HCPCS: 36415; 71045; 78452; 80048; 80053; 80061; 81001; 83036; 83690; 83735; 83880; 84443; 84484; 85025; 93005; 93017; 93306; G0378